=== PATIENT | male | born 1940 | race Hispanic/Latino ===

== ENCOUNTER → 2017-04-08 | Outpatient (CLI) | payer OTHER ==
[~2017-04-08] MED LIST: AEC81 PO; CLOP75TA14 PO; DIGO125T87 PO; LISI2.5T2 PO; METO50TA18 PO; SIMV20TA6 PO; WARF-57 PO
== END | disposition home or self-care (01) ==
LOC: SHCH 13:47
PROVIDERS: ATTEND Internal Medicine Cardiovascular Disease
DX: I87.2 Venous insufficiency (chronic) (peripheral) (principal)
CPT/HCPCS: 93970

== ENCOUNTER → 2018-05-10 | Outpatient (CLI) | payer OTHER | END | disposition home or self-care (01) | LOC: SHCH 11:35 | PROVIDERS: ATTEND Internal Medicine Cardiovascular Disease | DX: I51.7 Cardiomegaly (principal); I48.91 Unspecified atrial fibrillation | CPT/HCPCS: 93306 ==

== ENCOUNTER → 2018-09-28 | Outpatient (CLI) | payer OTHER | END | disposition home or self-care (01) | LOC: RAH 15:08 | PROVIDERS: ATTEND Family Medicine | DX: R22.32 Localized swelling, mass and lump, left upper limb (principal) | CPT/HCPCS: 76882 ==

== ENCOUNTER → 2019-07-22 | Outpatient (CLI) | payer OTHER ==
[~2019-07-22] MED LIST changes: +DIGO125T71 PO; -DIGO125T87 PO; +REGADENOSON 0.4 MG/5 ML PF SYG IVP ONE; +SIMV-43 PO; -SIMV20TA6 PO
== END | disposition home or self-care (01) ==
LOC: SHCH 08:50
PROVIDERS: ATTEND Internal Medicine Cardiovascular Disease
DX: I20.9 Angina pectoris, unspecified (principal)
CPT/HCPCS: 78452; 93017; 96374; A9500 ×2; J2785

== ENCOUNTER → 2019-11-14 | Outpatient (CLI) | payer OTHER ==
[~2019-11-14] MED LIST changes: -REGADENOSON 0.4 MG/5 ML PF SYG IVP ONE
== END | disposition home or self-care (01) ==
LOC: OIH 13:00
PROVIDERS: ATTEND Neuromusculoskeletal Medicine & OMM
DX: M47.812 Spondylosis without myelopathy or radiculopathy, cervical region (principal); M48.02 Spinal stenosis, cervical region; M25.78 Osteophyte, vertebrae
CPT/HCPCS: 72040

== ENCOUNTER → 2020-04-16 | Outpatient (CLI) | payer OTHER | END | disposition home or self-care (01) | LOC: OIH 10:58 | PROVIDERS: ATTEND Family Medicine | DX: I11.9 Hypertensive heart disease without heart failure (principal); I10 Essential (primary) hypertension | CPT/HCPCS: 71046 ==

== ENCOUNTER → 2022-02-17 | Outpatient (CLI) | payer OTHER ==
[~2022-02-17] MED LIST changes: +CLOP-31 PO; -CLOP75TA14 PO; +LISI2.5T13 PO; -LISI2.5T2 PO
== END | disposition home or self-care (01) ==
LOC: SHCH 15:14
PROVIDERS: ATTEND Internal Medicine Cardiovascular Disease
DX: I51.7 Cardiomegaly (principal); I48.91 Unspecified atrial fibrillation; I49.8 Other specified cardiac arrhythmias
CPT/HCPCS: 93306

== ENCOUNTER 2022-12-24 05:53 | Day surgery (SDC) | payer OTHER ==
[2022-12-19 10:42] LABS: BASOPHILS # (AUTO) 0.08 K/uL (0.00-0.20); BASOPHILS % (AUTO) 0.8 % (0.0-5.0); EOSINOPHILS # (AUTO) 0.07 K/uL (0.00-0.70); EOSINOPHILS % (AUTO) 0.7 % (0.0-8.0); HEMATOCRIT 38.4 % (42-54); IMMATURE GRANULOCYTE ABSOLUTE 0.05 K/uL (0-1); LYMPHOCYTES # (AUTO) 2.8 K/uL (1.0-4.8); MEAN CORPUSCULAR HEMOGLOBIN 22.8 pg (27.0-33.0); MEAN CORPUSCULAR HGB CONC 30.2 g/dL (32.0-36.0); MEAN CORPUSCULAR VOLUME 75.6 fL (79-99); MONOCYTES % (AUTO) 10.3 % (3.0-13.0); NEUTROPHILS % (AUTO) 59.7 % (40.0-77.0); PLATELET COUNT (AUTO) 239 K/uL (130-400); RED BLOOD CELL COUNT(AUTO) 5.08 MIL/uL (4.50-6.20); RED CELL DISTRIBUTION WIDTH 19.9 % (11.0-15.5)
[2022-12-19 10:54] LABS: INR 1.29 (0.85-1.15); PROTHROMBIN TIME 14.7 SEC (9.6-11.6)
[2022-12-19 10:55] LABS: PARTIAL THROMBOPLASTIN TIME 34.5 SEC (26.3-35.5)
[2022-12-19 11:23] VITALS: BP 118/67; PULSE 58; RESP 16
[2022-12-19 11:53] LABS: CREATININE 0.9 mg/dL (0.5-1.5); POTASSIUM 4.1 mmol/L (3.5-5.1)
[~2022-12-24] VITALS: Ht 177.8 cm; Wt 84.2 kg
[2022-12-24] VITALS (14 sets, daily range): BP systolic 79–145; BP diastolic 51–95; PULSE 69–111; RESP 13–18
[~2022-12-24 05:53] MED LIST changes: -AEC81 PO; +BACL10TA PO; -CLOP-31 PO; -DIGO125T71 PO; +NAPR-1023 PO; +RIVA20TA PO; -WARF-57 PO
[2022-12-24] MEDS ORDERED: LACTATED RINGERS 1000ML 1,000 ML IV ONE (06:28)
[2022-12-24] MEDS ORDERED: MIDAZOLAM HCL 1 MG/ML 2ML VIAL ONE (06:50)
[2022-12-24] MEDS ORDERED: PROPOFOL 10 MG/ML 20ML VIAL IV ONE (06:50)
[2022-12-24] MEDS ORDERED: FENTANYL CITRATE PF 50 MCG/1 ML 2ML VIAL ONE ×2 (06:50→07:37)
[2022-12-24] MEDS ORDERED: LIDOCAINE HCL-MPF 0.5% 50ML VIAL IJ ONE (06:56)
[2022-12-24] MEDS ORDERED: NICARDIPINE 25MG INJ IV ONE (06:57)
[2022-12-24] MEDS ORDERED: ONDANSETRON 4MG INJ ONE (07:01)
[2022-12-24] MEDS ORDERED: BUPIVACAINE/PF 0.25% 30ML VIAL IJ ONE (07:02)
[2022-12-24] MEDS ORDERED: KETOROLAC 30MG VIAL (30MG/ML) ONE (07:02)
[2022-12-24] MEDS ORDERED: CARV6.25 PO (07:08)
[2022-12-24] MEDS: CEFAZOLIN SODIUM 2 GM VIAL ONE ×2 (07:10→07:39)
[2022-12-24] MEDS ORDERED: PHENYLEPHRINE HCL 10 MG/ML 1ML VIAL IV ONE (07:16)
[2022-12-24] MEDS ORDERED: TRAM-355 PO (08:13)
== END 2022-12-24 09:45 | disposition home or self-care (01) ==
LOC: DAH 05:53
PROVIDERS: ATTEND Student in an Organized Health Care Education/Training Program
DX: G56.02 Carpal tunnel syndrome, left upper limb (principal); I25.5 Ischemic cardiomyopathy; I25.10 Atherosclerotic heart disease of native coronary artery without angina pectoris; I48.0 Paroxysmal atrial fibrillation; I25.2 Old myocardial infarction; E78.5 Hyperlipidemia, unspecified; E11.9 Type 2 diabetes mellitus without complications; I21.3 ST elevation (STEMI) myocardial infarction of unspecified site; Z80.9 Family history of malignant neoplasm, unspecified; Z72.89 Other problems related to lifestyle; Z79.84 Long term (current) use of oral hypoglycemic drugs; Z79.01 Long term (current) use of anticoagulants; Z79.82 Long term (current) use of aspirin; Z79.899 Other long term (current) drug therapy; Z98.890 Other specified postprocedural states
CPT/HCPCS: 36415; 80048; 85025; 85730; 85610; 64721; A4663; J7120 ×2; J3010 ×2; J0665; J3490 ×2; J2250; J2704; J2405; J1885; J2371; J0690; A6223; A4649; A4930; A4215; A4222; A4216; A4223 ×2; A4221